=== PATIENT | female | born 1945 | race Caucasian/White ===

== ENCOUNTER 2021-06-22 11:27 | Outpatient (CLI) | payer MEDICARE | END 2021-06-22 11:28 | disposition home or self-care (01) | LOC: CSHMAMMO 11:27 | PROVIDERS: ATTEND Obstetrics & Gynecology | DX: Z12.31 Encounter for screening mammogram for malignant neoplasm of breast (principal) | CPT/HCPCS: 77063; 77067 ==

== ENCOUNTER 2022-04-06 11:41 | Outpatient (CLI) | payer OTHER | END 2022-04-06 11:42 | disposition home or self-care (01) | LOC: CSHRAD 11:41 | PROVIDERS: ATTEND Family Medicine | DX: E78.5 Hyperlipidemia, unspecified (principal); I10 Essential (primary) hypertension; R06.2 Wheezing; I51.7 Cardiomegaly | CPT/HCPCS: 71046 ==

== ENCOUNTER → 2022-07-12 | Day surgery (SDC) | payer OTHER ==
[~2022-07-12] MED LIST: PROPOFOL 20 ML ONE
[2022-07-12 11:08] VITALS: TEMP 98
== END ==
LOC: CSHSDC 08:30
PROVIDERS: ATTEND Internal Medicine Cardiovascular Disease
DX: I48.0 Paroxysmal atrial fibrillation (principal); I10 Essential (primary) hypertension; R00.0 Tachycardia, unspecified; E78.5 Hyperlipidemia, unspecified; Z79.899 Other long term (current) drug therapy
CPT/HCPCS: 92960; 93005; 93010; J2704

== ENCOUNTER 2024-02-17 07:09 | Inpatient (IN) | payer MEDICARE ==
[2024-02-17] MEDS ORDERED: Ipratropium/Albuterol 3 ML NEB ONE (07:46)
[2024-02-17] MEDS ORDERED: methylPREDNISolone Sod Succ/PF 125 MG/2 ML VIAL ONE ×2 (07:50→07:53)
[2024-02-17 08:17] LABS: #Basophils 0.04 10x3/uL (0.0-0.2); #Eosinophils 0.18 10x3/uL (0.0-0.5); #Monocytes 1.06 10x3/uL (0.0-1.1); #Neutrophils 7.83 10x3/uL (1.5-8.4); %Basophils 0.4 % (0.0-2.0); %Eosinophils 1.9 % (0.0-6.0); %Neutrophils 81.3 % (40.0-75.0); Hematocrit 36.5 % (34.9-44.5); Hemoglobin 12.8 g/dL (12.0-15.5); Mean Corpuscular HGB CONC 35.1 g/dL (32.0-36.0); Mean Corpuscular Hemoglobin 33.2 pg (27.0-33.0); Mean Corpuscular Volume 94.8 fL (81.6-98.3); Mean Platelet Volume 9.9 fL (7.4-10.4); Platelet Count 261 10x3/uL (150-450); RBC Distribution Width 13.7 % (11.5-14.5); Red Blood Cell (RBC) Count 3.85 10x6/uL (3.90-5.03); White Blood Cell (WBC) Count 9.6 10x3/uL (3.5-10.5)
[2024-02-17 08:26] LABS: ALT (SGPT) 122 U/L (8-55); AST (SGOT) 70 U/L (5-34); Alkaline Phosphatase 95 U/L (40-110); Anion Gap 18 mmol/L (10-20); BUN (Urea Nitrogen) 12 mg/dL (9.8-20.1); Bilirubin, Total 1.1 mg/dL (0.2-1.2); Calc. Creatinine Clearance 0 mL/min (70-130); Calcium 9.7 mg/dL (7.8-10.44); Carbon Dioxide 24 mmol/L (23-31); Chloride 94 mmol/L (98-107); Estimated GFR 77; Globulin 2.7 g/dL (2.4-3.5); Glucose 144 mg/dL (83-110); Magnesium 1.5 mg/dL (1.6-2.6); Potassium 3.3 mmol/L (3.5-5.1); Protein, Total 6.7 g/dL (5.8-8.1); Sodium 133 mmol/L (136-145)
[2024-02-17 08:32] LABS: Troponin I 0.016 ng/mL (< 0.028)
[2024-02-17] MEDS ORDERED: Potassium Chloride 20 MEQ TAB ONE (09:09)
[2024-02-17 09:10] LABS: Actual Bicarbonate (HCO3a) 25.8 mEq/L (22-28); Analyzer IN Cardio CS ER; Base Excess (BEa) 2.2 mEq/L (-2.0 to +3.0); Calcium, Ionized (arterial) 1.14 mmol/L (1.12-1.30); Carboxyhemoglobin (COHb) 0.4 gm% (0.0-3.0); Hematocrit-ABG 39 % (36.0-47.0); Hemoglobin (Hb) 13.1 g/dL (12.0-16.0); O2 Tension (PaO2), arterial 69.4 mmHg (> 70.0); Potassium - ABG Lab 3.25 mmol/L (3.70-5.30); Puncture Site Right Radial artery; pH, Arterial 7.462 (7.35-7.45)
[2024-02-17] MEDS ORDERED: Magnesium 2 GM/50 ML BAG (IN WATER) ONE (09:12)
[2024-02-17] MEDS ORDERED: dilTIAZem 25 MG/5 ML VIAL ONE (10:52)
[2024-02-17] MEDS ORDERED: Apixaban 5 MG TAB ONE (11:14)
[2024-02-17] MEDS ORDERED: Iopamidol 370 76% 100 ML VIAL ONE (11:34)
[2024-02-17] MEDS ORDERED: dilTIAZem 125 MG/25 ML SDV ONE (14:17)
[2024-02-17] MEDS ORDERED: Furosemide 40 MG (4 mL) VIAL ONE (15:28)
[2024-02-17] MEDS ORDERED: Lidocaine 4% Patch ONE (17:11)
[2024-02-17] MEDS ORDERED: Ketorolac Tromethamine 30 MG (1 mL) VIAL ONE (17:11)
[2024-02-17] MEDS ORDERED: Acetaminophen 325 MG TAB PO PRN (19:38)
[2024-02-17] MEDS ORDERED: Senokot S 8.6-50 MG TAB PO PRN (19:38)
[2024-02-17] MEDS ORDERED: Ondansetron PF 4 MG/2 ML Vial IVP PRN (19:38)
[2024-02-17] MEDS ORDERED: Zolpidem Tartrate 5 MG TAB PO PRN (19:38)
[2024-02-17] MEDS ORDERED: Calcium Carbonate 500 MG ChewTAB PO PRN (19:38)
[2024-02-17] MEDS ORDERED: Guaifenesin DM 100-10/5 ML UDCUP PO PRN (19:38)
[2024-02-17] MEDS ORDERED: traMADol HCl 50 MG TAB PO PRN (19:38)
[2024-02-17] MEDS ORDERED: Albuterol 2.5 MG (3 mL) NEB NEB PRN (19:43)
[2024-02-17 22:36] VITALS: BMI 32.9
[2024-02-17] MEDS: Benzonatate 100 MG CAP PO SCH (23:11)
[2024-02-17] MEDS: Apixaban 5 MG TAB PO SCH (23:11)
[2024-02-17] MEDS: Flecainide 50 MG TAB PO SCH (23:11)
[2024-02-17] MEDS: Potassium Chloride 20 MEQ TAB PO SCH (23:11)
[2024-02-17] MEDS: Furosemide 20 MG (2 mL) VIAL SLOW IVP SCH (23:12)
[2024-02-17] MEDS: Azithromycin 250 MG TAB PO SCH (23:12)
[2024-02-18 02:20] LABS: Legionella Urinary Ag Negative (Negative); Strep pneumo Urine Ag NEGATIVE (NEGATIVE)
[2024-02-18 04:58] LABS: #Basophils 0.01 10x3/uL (0.0-0.2); #Monocytes 1.02 10x3/uL (0.0-1.1); #Neutrophils 6.46 10x3/uL (1.5-8.4); %Basophils 0.1 % (0.0-2.0); %Lymphocytes 6.4 % (18.0-47.0); %Monocytes 12.7 % (0.0-10.0); %Neutrophils 80.4 % (40.0-75.0); Hematocrit 33.4 % (34.9-44.5); Hemoglobin 11.6 g/dL (12.0-15.5); Mean Corpuscular HGB CONC 34.7 g/dL (32.0-36.0); Mean Corpuscular Volume 94.9 fL (81.6-98.3); Mean Platelet Volume 9.7 fL (7.4-10.4); Platelet Count 249 10x3/uL (150-450); RBC Distribution Width 13.9 % (11.5-14.5); Red Blood Cell (RBC) Count 3.52 10x6/uL (3.90-5.03)
[2024-02-18 05:13] LABS: Troponin I 0.013 ng/mL (< 0.028)
[2024-02-18] MEDS: Furosemide 40 MG (4 mL) VIAL SLOW IVP SCH (05:25)
[2024-02-18] MEDS: dilTIAZem 125 MG in Sodium Chloride 0.9% 100 ML IVPB SCH (05:25)
[2024-02-18 05:33] LABS: ALT (SGPT) 94 U/L (8-55); AST (SGOT) 52 U/L (5-34); Albumin 3.5 g/dL (3.4-4.8); Alkaline Phosphatase 84 U/L (40-110); Anion Gap 17 mmol/L (10-20); BUN (Urea Nitrogen) 18 mg/dL (9.8-20.1); Bilirubin, Total 0.5 mg/dL (0.2-1.2); Calc. Creatinine Clearance 77 mL/min (70-130); Calcium 8.7 mg/dL (7.8-10.44); Carbon Dioxide 23 mmol/L (23-31); Chloride 97 mmol/L (98-107); Estimated GFR 76; Globulin 2.7 g/dL (2.4-3.5); Glucose 143 mg/dL (83-110); Magnesium 2.2 mg/dL (1.6-2.6); Potassium 3.8 mmol/L (3.5-5.1); Protein, Total 6.2 g/dL (5.8-8.1); Sodium 133 mmol/L (136-145)
[2024-02-18] MEDS: Mometasone 200 MCG/Formoterol 5 MCG 60 PUFF INHALER INH SCH (07:28)
[2024-02-18] MEDS: Apixaban 5 MG TAB PO SCH (08:36)
[2024-02-18] MEDS: Flecainide 50 MG TAB PO SCH (08:36)
[2024-02-18] MEDS: Pantoprazole DR 40 MG TAB PO SCH (08:36)
[2024-02-18] MEDS: Benzonatate 100 MG CAP PO SCH (08:36)
[2024-02-18] MEDS: Escitalopram Oxalate 20 mg Tablet PO SCH (08:36)
[2024-02-18] MEDS: Atorvastatin Calcium 20 MG TAB PO SCH (08:36)
[2024-02-18] MEDS: Atenolol 50 MG TAB PO SCH (08:37)
[2024-02-18] MEDS: Potassium Chloride 20 MEQ TAB PO SCH (08:37)
[2024-02-18] MEDS: FLU (Fluad Triv) TS24-25 (65UP)/MF59C/PF 45 MCG/0.5 ML Syringe IM ONE (15:57)
[2024-02-19 04:08] LABS: Anion Gap 11 mmol/L (10-20); BUN (Urea Nitrogen) 18 mg/dL (9.8-20.1); Calc. Creatinine Clearance 87 mL/min (70-130); Calcium 8.5 mg/dL (7.8-10.44); Carbon Dioxide 26 mmol/L (23-31); Chloride 101 mmol/L (98-107); Estimated GFR 88; Glucose 92 mg/dL (83-110); Potassium 3.4 mmol/L (3.5-5.1); Sodium 135 mmol/L (136-145)
[2024-02-19 04:09] LABS: #Basophils 0.02 10x3/uL (0.0-0.2); #Monocytes 1.65 10x3/uL (0.0-1.1); #Neutrophils 8.67 10x3/uL (1.5-8.4); %Basophils 0.2 % (0.0-2.0); %Eosinophils 2.5 % (0.0-6.0); %Lymphocytes 9.7 % (18.0-47.0); %Neutrophils 73.3 % (40.0-75.0); Hematocrit 37.9 % (34.9-44.5); Hemoglobin 12.8 g/dL (12.0-15.5); Mean Corpuscular HGB CONC 33.8 g/dL (32.0-36.0); Mean Corpuscular Hemoglobin 32.3 pg (27.0-33.0); Mean Corpuscular Volume 95.7 fL (81.6-98.3); Mean Platelet Volume 9.5 fL (7.4-10.4); Platelet Count 258 10x3/uL (150-450); Red Blood Cell (RBC) Count 3.96 10x6/uL (3.90-5.03); White Blood Cell (WBC) Count 11.8 10x3/uL (3.5-10.5)
[2024-02-19] MEDS: Potassium Chloride 20 MEQ TAB PO SCH (06:38)
[2024-02-19] MEDS: predniSONE 20 MG TAB PO SCH (14:49)
[2024-02-19] MEDS: guaiFENesin ER 600 MG TAB PO SCH ×2 (14:49→21:09)
[2024-02-19] MEDS: Flecainide 50 MG TAB PO SCH (21:09)
[2024-02-19 23:28] LABS: Anion Gap 14 mmol/L (10-20); BUN (Urea Nitrogen) 20 mg/dL (9.8-20.1); Calc. Creatinine Clearance 74 mL/min (70-130); Calcium 8.7 mg/dL (7.8-10.44); Carbon Dioxide 24 mmol/L (23-31); Chloride 101 mmol/L (98-107); Estimated GFR 73; Glucose 271 mg/dL (83-110); Phosphorus 1.9 mg/dL (2.3-4.7); Potassium 4.7 mmol/L (3.5-5.1); Sodium 134 mmol/L (136-145)
[2024-02-19] MEDS: dilTIAZem 125 MG, Admixture Fee 1 EACH in Sodium Chloride 0.9% 100 ML IVPB SCH (23:33)
[2024-02-19 23:34] LABS: Troponin I 0.011 ng/mL (< 0.028)
[2024-02-20 02:23] LABS: #Basophils 0.01 10x3/uL (0.0-0.2); #Eosinophils 0.01 10x3/uL (0.0-0.5); #Monocytes 0.69 10x3/uL (0.0-1.1); #Neutrophils 6.94 10x3/uL (1.5-8.4); %Basophils 0.1 % (0.0-2.0); %Eosinophils 0.1 % (0.0-6.0); %Lymphocytes 5.6 % (18.0-47.0); %Monocytes 8.5 % (0.0-10.0); %Neutrophils 85.2 % (40.0-75.0); Hematocrit 36.2 % (34.9-44.5); Hemoglobin 11.9 g/dL (12.0-15.5); Mean Corpuscular HGB CONC 32.9 g/dL (32.0-36.0); Mean Corpuscular Hemoglobin 31.9 pg (27.0-33.0); Mean Corpuscular Volume 97.1 fL (81.6-98.3); Mean Platelet Volume 9.6 fL (7.4-10.4); Platelet Count 280 10x3/uL (150-450); RBC Distribution Width 14.3 % (11.5-14.5); Red Blood Cell (RBC) Count 3.73 10x6/uL (3.90-5.03); White Blood Cell (WBC) Count 8.2 10x3/uL (3.5-10.5)
[2024-02-20 02:41] LABS: Troponin I Less than 0.010 ng/mL (< 0.028)
[2024-02-20 02:53] LABS: Anion Gap 13 mmol/L (10-20); BUN (Urea Nitrogen) 19 mg/dL (9.8-20.1); Calc. Creatinine Clearance 85 mL/min (70-130); Calcium 8.8 mg/dL (7.8-10.44); Carbon Dioxide 25 mmol/L (23-31); Chloride 103 mmol/L (98-107); Estimated GFR 85; Glucose 182 mg/dL (83-110); Potassium 4.5 mmol/L (3.5-5.1); Sodium 136 mmol/L (136-145)
[2024-02-20 06:51] LABS: Troponin I 0.013 ng/mL (< 0.028)
[2024-02-20] MEDS: predniSONE 20 MG TAB PO SCH (09:19)
[2024-02-21 04:00] LABS: #Basophils 0.03 10x3/uL (0.0-0.2); #Eosinophils 0.16 10x3/uL (0.0-0.5); #Monocytes 1.42 10x3/uL (0.0-1.1); #Neutrophils 9.28 10x3/uL (1.5-8.4); %Basophils 0.2 % (0.0-2.0); %Eosinophils 1.3 % (0.0-6.0); %Lymphocytes 8.7 % (18.0-47.0); %Monocytes 11.8 % (0.0-10.0); %Neutrophils 77.4 % (40.0-75.0); Hematocrit 36.1 % (34.9-44.5); Hemoglobin 12.4 g/dL (12.0-15.5); Mean Corpuscular HGB CONC 34.3 g/dL (32.0-36.0); Mean Corpuscular Hemoglobin 33.2 pg (27.0-33.0); Mean Corpuscular Volume 96.8 fL (81.6-98.3); Mean Platelet Volume 9.4 fL (7.4-10.4); Platelet Count 275 10x3/uL (150-450); Red Blood Cell (RBC) Count 3.73 10x6/uL (3.90-5.03)
[2024-02-21 04:15] LABS: Anion Gap 12 mmol/L (10-20); BUN (Urea Nitrogen) 17 mg/dL (9.8-20.1); Calc. Creatinine Clearance 86 mL/min (70-130); Calcium 8.9 mg/dL (7.8-10.44); Carbon Dioxide 27 mmol/L (23-31); Chloride 101 mmol/L (98-107); Estimated GFR 87; Glucose 103 mg/dL (83-110); Potassium 3.8 mmol/L (3.5-5.1); Sodium 136 mmol/L (136-145)
[2024-02-21 12:51] VITALS: BP 133/74; TEMP 99.6
== END 2024-02-21 13:54 | disposition home or self-care (01) | DRG 291 ==
LOC: CSHERS 07:09 → CSHTELE 19:44
PROVIDERS: ADMIT Student in an Organized Health Care Education/Training Program; ATTEND Internal Medicine
PROC: 5A2204Z Restoration of Cardiac Rhythm, Single (ICD-10-PCS; principal; 2024-02-19)
DX: I11.0 Hypertensive heart disease with heart failure (principal); I50.33 Acute on chronic diastolic (congestive) heart failure; J96.01 Acute respiratory failure with hypoxia; J44.1 Chronic obstructive pulmonary disease with (acute) exacerbation; E87.1 Hypo-osmolality and hyponatremia; E78.5 Hyperlipidemia, unspecified; F41.9 Anxiety disorder, unspecified; I48.0 Paroxysmal atrial fibrillation; J20.8 Acute bronchitis due to other specified organisms; G47.00 Insomnia, unspecified; E87.6 Hypokalemia; E83.42 Hypomagnesemia; Z85.828 Personal history of other malignant neoplasm of skin; Z87.891 Personal history of nicotine dependence
CPT/HCPCS: 36415; 36600; 71275; 80048; 80053; 82805; 83735; 83880; 84100; 84443; 84484; 85025; 87428; 87449; 87633; 87899; 92960; 93005; 93010; 93306; 94640; 94664; 94760; 94762; 96374; 96375; 96376; J1885; J1940; J2919; J3475; J7512; J7620; Q9967

== ENCOUNTER 2024-12-15 08:54 | Outpatient (CLI) | payer OTHER | END 2024-12-15 08:55 | disposition home or self-care (01) | LOC: CSHMRI 08:54 | PROVIDERS: ATTEND Family Medicine | DX: R41.3 Other amnesia (principal); R90.82 White matter disease, unspecified; G93.89 Other specified disorders of brain | CPT/HCPCS: 70553; 76376 ==